=== PATIENT | male | born 1950 | race Caucasian/White ===

== ENCOUNTER 2023-08-14 10:43 | Emergency (ER) | payer OTHER, MEDICARE ==
[~2023-08-14] VITALS: Ht 180.3 cm; Wt 79.7 kg
[2023-08-14] MEDS ORDERED: LIDOcaine 1% 30ml preserv. free vial IJ STA (11:35)
[2023-08-14 12:19] VITALS: BP 134/72; PULSE 54; RESP 18; TEMP 98.2; O2SAT 98
== END 2023-08-14 12:22 | disposition home or self-care (01) ==
LOC: ER 10:44
DX: S01.111A Laceration without foreign body of right eyelid and periocular area, initial encounter (principal); W01.0XXA Fall on same level from slipping, tripping and stumbling without subsequent striking against object, initial encounter; Y93.89 Activity, other specified; Y92.89 Other specified places as the place of occurrence of the external cause; Y99.8 Other external cause status
CPT/HCPCS: 12011; 99284; A6449